=== PATIENT | male | born 1955 | race Two or more races ===

== ENCOUNTER 2018-09-03 00:20 | Emergency (ER) | payer MEDICAID, MEDICARE ==
[~2018-09-03] VITALS: Ht 175.3 cm; Wt 67.3 kg
[~2018-09-03 00:20] MED LIST: ALPR0.254 PO; ASPI-496 PO; ASPI-621 PO; ATOR20TA9 PO; CARV12.52 PO; ERGO500017 PO; FLUC200T4 PO; GLIM1TAB PO; GLIM2TAB2 PO; INSU100C5 SQ-INSULIN; LISI2.5T PO; LISI5TAB7 PO; METF10002 PO; OXYC5TAB3 PO; POLY17PO5 PO; SEVE800T8 PO
[2018-09-03 00:23] VITALS: BP 160/85
[2018-09-03] MEDS ORDERED: DIPHENHYDRAMINE 25 MG CAPSULE ONE (00:44)
[2018-09-03 00:57] LABS: BASOPHILS # (AUTO) 0.03 x10^3/uL (0-0.1); BASOPHILS % (AUTO) 0 % (0-1); EOSINOPHILS # (AUTO) 0.74 x10^3/uL (0-0.4); EOSINOPHILS % (AUTO) 8 % (1-7); LYMPHOCYTES # (AUTO) 1.87 x10^3/uL (1-3.4); LYMPHOCYTES % (AUTO) 21 % (22-44); MD NO; MEAN CORPUSCULAR HEMOGLOBIN 29.8 pg (27.5-34.5); MEAN CORPUSCULAR HGB CONC 33.1 g/dL (33.2-36.2); MEAN CORPUSCULAR VOLUME 89.9 fL (81-97); MEAN PLATELET VOLUME 7.5 fL (7.4-10.4); MONOCYTES # (AUTO) 1.03 x10^3/uL (0.2-0.8); MONOCYTES % (AUTO) 12 % (2-9); NEUTROPHILS # (AUTO) 5.07 x10^3/uL (1.8-6.8); NEUTROPHILS % (AUTO) 58 % (42-75); PLATELET COUNT 211 x10^3/uL (130-400); RED BLOOD COUNT 4.59 x10^6/uL (4.38-5.82)
[2018-09-03] MEDS ORDERED: DIPHENHYDRAMINE 25 MG CAPSULE PO ONE (01:00)
[2018-09-03 01:02] LABS: INTERNATIONAL NORMALIZED RATIO 1.04 (0.93-1.1); PROTHROMBIN TIME 10.7 Seconds (9.6-11.5)
[2018-09-03 01:04] LABS: ALANINE AMINOTRANSFERASE 25 U/L (12-78); ALBUMIN 3.8 g/dL (3.4-5.0); ANION GAP 10 mmol/L (5-15); CALCIUM 9.5 mg/dL (8.5-10.1); CHLORIDE 100 mmol/L (98-107); CREATININE 5.63 mg/dL (0.7-1.3)
[2018-09-03 01:07] LABS: ALKALINE PHOSPHATASE 113 U/L (45-117); BILIRUBIN,TOTAL 0.5 mg/dL (0.2-1.0); TOTAL PROTEIN 8.2 g/dL (6.4-8.2)
[2018-09-03 01:12] LABS: MICROSCOPIC INDICATED
[2018-09-03 01:20] LABS: CULTURE INDICATED? NO
[2018-09-03] MEDS ORDERED: DEXAMETHASONE 4 MG TABLET ONE (01:39)
[2018-09-03] MEDS ORDERED: DEXAMETHASONE 4 MG TABLET PO ONE (02:00)
== END 2018-09-03 02:16 | disposition home or self-care (01) ==
LOC: ED 00:44
DX: R21 Rash and other nonspecific skin eruption (principal); I25.2 Old myocardial infarction; E11.22 Type 2 diabetes mellitus with diabetic chronic kidney disease; N18.9 Chronic kidney disease, unspecified; Z99.2 Dependence on renal dialysis; E11.40 Type 2 diabetes mellitus with diabetic neuropathy, unspecified
CPT/HCPCS: 36415; 80053; 81001; 83615; 85025; 85610; 85730; 99284

== ENCOUNTER 2021-01-02 17:45 | Emergency (ER) | payer MEDICARE ==
[~2021-01-02] VITALS: Ht 172.7 cm; Wt 67.3 kg
[~2021-01-02 17:45] MED LIST changes: -ASPI-621 PO; +ASPI81TA45 PO; +ATOR20TA37 PO; -ATOR20TA9 PO; -GLIM2TAB2 PO; +GLIM2TAB7 PO; -OXYC5TAB3 PO; +OXYC5TAB98 PO
[2021-01-02 17:50] VITALS: BP 150/45
[2021-01-02] MEDS ORDERED: FLUORESCEIN OPHTHALMIC 1 MG STRIP ONE (18:08)
[2021-01-02] MEDS ORDERED: PROPARACAINE OPHTH 0.5%, 15ML ONE (18:09)
== END 2021-01-02 18:24 | disposition home or self-care (01) ==
LOC: ED 18:18
DX: H11.32 Conjunctival hemorrhage, left eye (principal); R51.9 Headache, unspecified; I10 Essential (primary) hypertension; E11.9 Type 2 diabetes mellitus without complications; I25.2 Old myocardial infarction
CPT/HCPCS: 99281